=== PATIENT | female | born 1995 | race American Indian/Alaskan Native ===

== ENCOUNTER 2017-12-10 08:02 | Day surgery (SDC) | payer BC ==
[2017-12-10] MEDS ORDERED: Sodium Chloride 0.9% 10 ML Syringe FLUSH PRN (08:23)
[2017-12-10] MEDS ORDERED: HYDROmorphone 2 MG/ML SDV IVPUSH PRN (08:23)
[2017-12-10] MEDS ORDERED: Sodium Chloride 0.9% 2.5 ML Syringe FLUSH PRN (08:23)
[2017-12-10] MEDS ORDERED: Lactated Ringers 1,000 ML IV SCH (08:30)
--- NOTE | 2017-12-10 08:30 | PCM.HP ---
H&P History of Present Illness - General Date of Service: 12/10/17 Admit Problem/Dx: Admission Diagnosis/Problem Admission Diagnosis/Problem Appendicitis Source of Information: Patient History Limitations: Reports: No Limitations - History of Present Illness Initial Comments - Free Text/Narative: Patient is a 22-year-old female who presents with 12 hours of acute abdominal pain. She's not felt well over the past week. She has been feeling nauseated and vomited several times. Last evening she developed generalized sharp abdominal pain that made it difficult for her to sleep. She presented to an outside emergency room this morning. CBC showed a white blood cell count of 18, 000. CT the abdomen pelvis revealed an acutely dilated appendix with no evidence of rupture. She was transferred here for further cares. She denies fevers or chills. Last time she ate was last evening. Right Lower Abdominal Pain Score (Numeric/FACES): 10 - Related Data Allergies/Adverse Reactions: Allergies Allergy/AdvReac Type Severity Reaction Status Date / Time chocolate flavor Allergy Hives Verified 12/10/17 08:10 venom-honey bee AdvReac Lethargy Verified 12/10/17 08:10 [bee venom (honey bee)] barbaque chips Allergy Facial Uncoded 12/10/17 08:10 Swelling Home Medications: Home Meds . 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 Exam - Exam Exam: See Below - Vital Signs Vital Signs: Last Vital Signs Temp 36.2 C 12/10/17 08:05 Pulse 90 12/10/17 08:05 Resp 16 12/10/17 08:05 BP 128/80 12/10/17 08:05 Pulse Ox 99 12/10/17 08:05 Weight: 81.647 kg - Exam General: Alert, Oriented, Moderate Distress HEENT: Conjunctiva Clear, Mucosa Moist & [place], Posterior Pharynx Clear Lungs: Clear to Auscultation, Normal Respiratory Effort Cardiovascular: Regular Rate, Regular Rhythm GI/Abdominal Exam: Soft, No Distention, No Mass, Guarding (RLQ), Tender (RLQ). No: Rigid, Rebound Back Exam: Normal Inspection Extremities: Normal Inspection - Problem List (1) Appendicitis SNOMED Code(s): 40985263 ICD Code: K37 - UNSPECIFIED APPENDICITIS Status: Acute Current Visit: Yes Problem List Initiated/Reviewed/Updated: Yes Orders Last 24hrs: Active Orders 24 hr Category Date Time Status Patient Status [ADT] Routine ADT 12/10/17 08:23 Ordered Oxygen Therapy [RC] PRN Care 12/10/17 08:23 Ordered RT Incentive Spirometry [RC] Q2HWA Care 12/10/17 08:23 Ordered Up ad Chle [RC] ASDIRECTED Care 12/10/17 08:23 Ordered Vital Signs [RC] PER UNIT ROUTINE Care 12/10/17 08:23 Ordered Nothing Per Oral Diet [DIET] Diet 12/10/17 Breakfast Ordered HYDROmorphone [Dilaudid] Med 12/10/17 08:23 Ordered 0.5 mg IVPUSH Q1H PRN Lactated Ringers @ 125 MLS/HR(1000ml) Med 12/10/17 08:30 Ordered Lactated Ringers [Ringers, Lactated] 1,000 ml IV ASDIRECTED Ondansetron [Zofran] Med 12/10/17 08:23 Ordered 4 mg IVPUSH Q6H PRN Sodium Chloride 0.9% [Saline Flush] Med 12/10/17 08:23 Ordered 10 ml FLUSH ASDIRECTED PRN Sodium Chloride 0.9% [Saline Flush] Med 12/10/17 08:23 Ordered 2.5 ml FLUSH ASDIRECTED PRN Peripheral IV Insertion Adult [OM.PC] Urgent Oth 12/10/17 08:23 Ordered Resuscitation Status Routine Resus Stat 12/10/17 08:23 Ordered Assessment/Plan Comment:: The patient and I discussed the pathophysiology of appendicitis. The treatment for this is appendectomy. We discussed the open and laparoscopic approaches. I will attempt this laparoscopically but should I be unable to complete it safely I will convert to open. The patient and I discussed the expected perioperative course and the risks including bleeding infection or damage to surrounding structures. I explained the different treatment plans based on the appendix is ruptured or not. The patient verbalized understanding and wishes to proceed. We will keep the patient nothing by mouth, continue IV fluid resuscitation, and continue IV antibiotics.
[2017-12-10] MEDS ORDERED: HYDROmorphone 1 MG/ML Syringe IVPUSH ONE (08:42)
[2017-12-10] MEDS ORDERED: fentaNYL 100 MCG/2 ML SDV IVPUSH PRN ×2 (09:36→13:07)
--- NOTE | 2017-12-10 09:55 | PCM.PREANE ---
Preanesthetic Assessment - Anesthesia/Transfusion/Family Hx Anesthesia History: No Prior Anesthesia Family History of Anesthesia Reaction: No Transfusion History: No Prior Transfusion(s) - Review of Systems General: No Symptoms Pulmonary: No Symptoms Cardiovascular: No Symptoms Gastrointestinal: No Symptoms Neurological: No Symptoms Other: Reports: None - Physical Assessment NPO Status Date: 12/09/17 NPO Status Time: 23:00 O2 Sat by Pulse Oximetry: 95 Respiratory Rate: 16 Vital Signs: Last Vital Signs Temp 96 F 12/10/17 09:09 Pulse 82 12/10/17 09:09 Resp 16 12/10/17 09:09 BP 119/72 12/10/17 09:09 Pulse Ox 95 12/10/17 09:09 Height: 5 ft 6 in Weight: 81.647 kg ASA Class: 2 Mental Status: Alert & Oriented x3 Airway Class: Mallampati = 2 Dentition: Reports: Normal Dentition Thyro-Mental Finger Breadths: 3 Mouth Opening Finger Breadths: 3 ROM/Head Extension: Full Lungs: Clear to Auscultation, Normal Respiratory Effort Cardiovascular: Regular Rate, Regular Rhythm - Lab Values: Laboratory Last Values Urine HCG, Qual NEGATIVE (NEGATIVE) 12/10/17 09:12 - Allergies Allergies/Adverse Reactions: Allergies Allergy/AdvReac Type Severity Reaction Status Date / Time chocolate flavor Allergy Hives Verified 12/10/17 08:10 venom-honey bee AdvReac Lethargy Verified 12/10/17 08:10 [bee venom (honey bee)] barbaque chips Allergy Facial Uncoded 12/10/17 08:10 Swelling - Acknowledgements Anesthesia Type Planned: MAC Pt an Appropriate Candidate for the Planned Anesthesia: Yes Alternatives and Risks of Anesthesia Discussed w Pt/Guardian: Yes Pt/Guardian Understands and Agrees with Anesthesia Plan: Yes PreAnesthesia Questionnaire - Past Health History Medical/Surgical History: Denies Medical/Surgical History HEENT History: Reports: None Cardiovascular History: Reports: None Respiratory History: Reports: None Gastrointestinal History: Reports: None Genitourinary History: Reports: UTI, Recurrent [employer]ATIONS History: Reports: Musculoskeletal History: Reports: None Neurological History: Reports: None Psychiatric History: Reports: None Endocrine/Metabolic History: Reports: Obesity/BMI 30+ Hematologic History: Reports: None Immunologic History: Reports: None Oncologic (Cancer) History: Reports: None Dermatologic History: Reports: None - Infectious Disease History Infectious Disease History: Reports: MRSA - Past Imaging History Past Imaging History: Reports: None - SUBSTANCE USE Smoking Status *Q: Never Smoker Recreational Drug Use History: No - HOME MEDS Home Medications: Home Meds . [No Known Home Meds] 12/10/17 [History] Etonogestrel [Nexplanon] 1 dose IMPLANT ASDIRECTED 12/10/17 [History] - CURRENT (IN HOUSE) MEDS Current Meds: Current Medications Fentanyl (Sublimaze) 50 mcg IVPUSH Q5M PRN PRN Reason: Pain (severe 7-10) Stop: 12/11/17 09:37 Hydromorphone HCl (Dilaudid) 0.5 mg IVPUSH Q1H PRN PRN Reason: Pain (severe 7-10) Lactated Ringer's (Ringers, Lactated) 1,000 mls @ 125 mls/hr IV ASDIRECTED ULISES Last Admin: 12/10/17 08:25 Dose: 125 mls/hr Piperacillin Sod/Tazobactam (Sod 3.375 gm/ Sodium Chloride) 50 mls @ 100 mls/ hr IV Q8H ULISES Ondansetron HCl (Zofran) 4 mg IVPUSH Q6H PRN PRN Reason: Nausea/Vomiting Sodium Chloride (Saline Flush) 10 ml FLUSH ASDIRECTED PRN PRN Reason: Keep Vein Open Sodium Chloride (Saline Flush) 2.5 ml FLUSH ASDIRECTED PRN PRN Reason: Keep Vein Open Discontinued Medications Hydromorphone HCl (Dilaudid) 1 mg IVPUSH ONETIME ONE Stop: 12/10/17 08:43 Last Admin: 12/10/17 08:02 Dose: 0.5 mg
[2017-12-10 11:07] LABS: CHLORIDE,CL 104 mmol/L (98-107); SODIUM,NA 138 mmol/L (136-145)
[2017-12-10] MEDS ORDERED: fentaNYL 100 MCG/2 ML SDV ONE ×2 (12:13→13:29)
[2017-12-10] MEDS ORDERED: Propofol 200 MG/20 ML SDV ONE ×2 (12:13→12:48)
[2017-12-10] MEDS ORDERED: Lidocaine 2% 5 ML SDV ONE ×2 (12:13→12:48)
[2017-12-10] MEDS ORDERED: fentaNYL 250 MCG/5 ML SDV ONE (12:13)
[2017-12-10] MEDS ORDERED: Midazolam 1 MG/ML 2 ML SDV ONE (12:13)
[2017-12-10] MEDS ORDERED: Bupivacaine 0.5% 10 ML SDV ONE (12:16)
[2017-12-10] MEDS ORDERED: Sugammadex Sodium 200 MG/2 ML VIAL ONE (12:18)
--- NOTE | 2017-12-10 13:42 | PCM.OPNOTE ---
- General Post-Op/Procedure Note Date of Surgery/Procedure: 12/10/17 Operative Procedure(s): Laparoscopic appendectomy Findings: Grossly inflamed and enlarged appendix. No evidence of perforation Pre Op Diagnosis: Appendicitis Post-Op Diagnosis: Appendicitis Anesthesia Technique: General ET Tube Primary Surgeon: Phyllis Liz Fluid Replacement, Intraop: 1,300 Output, Urine Amount: 65 EBL in mLs: 10 Condition: Fair Free Text/Narrative:: Intake & Output 12/09/17 12/10/17 12/10/17 22:59 06:59 14:59 Output Total 300 Balance -300
[2017-12-10] MEDS ORDERED: Piperacillin/Tazobactam 3.375 GM in Sodium Chloride 0.9% 50 ML IV SCH (14:00)
--- NOTE | 2017-12-10 14:27 | PCM.POSTAN ---
POST ANESTHESIA ASSESSMENT - MENTAL STATUS Mental Status: Alert, Oriented - RESPIRATORY Respiratory Status: Respiratory Rate WNL, Airway Patent, O2 Saturation Stable - CARDIOVASCULAR CV Status: Pulse Rate WNL, Blood Pressure Stable - GASTROINTESTINAL GI Status: No Symptoms - PAIN Pain Score: 0 - POST OP HYDRATION Hydration Status: Adequate & Stable
--- NOTE | 2017-12-10 15:03 | OR ---
SURGEON: LUISITO BRAN MD DATE OF PROCEDURE: 12/10/2017 PREOPERATIVE DIAGNOSIS: Appendicitis. POSTOPERATIVE DIAGNOSIS: Appendicitis. PROCEDURE PERFORMED: Laparoscopic appendectomy. ANESTHESIA: General endotracheal anesthesia. FLUIDS: 1300 mL of crystalloid. ESTIMATED BLOOD LOSS: 10 mL. URINE OUTPUT: 165 mL. FINDINGS: Enlarged and inflamed appendix, did not appear ruptured. COMPLICATIONS: None. INDICATIONS: The patient is a 22-year-old female, who developed generalized abdominal pain last night. She presented to the emergency room in an outside facility. White blood cell count was 18,000. CT scan revealed acute appendicitis. She was transferred here for further cares. I visited with the patient in the emergency room. We discussed the pathophysiology of appendicitis. I explained the need for an appendectomy. We discussed the open and laparoscopic approaches. I will attempt this laparoscopically, but should I be unable to perform it safely, I will convert to open. The patient and I discussed the expected perioperative course as well as the risks including bleeding, infection, or damage to surrounding structures. The patient verbalized understanding and wishes to proceed. PROCEDURE IN DETAIL: The patient was brought into the operating room, placed on the OR table in supine position. A time-out was completed verifying the patient's name, age, date of , allergies, and procedure to be performed. General endotracheal anesthesia was induced. The left arm was tucked at the patient's side and a Rey catheter placed. The abdomen was prepped and draped in usual standard fashion. An area 2 fingerbreadths below the left subcostal margin in the midclavicular line was anesthetized with 0.5% Marcaine plain. A 1 cm incision was made in this area using an 11 blade. A 5 mm optical trocar was then used to gain entry into the abdomen in the left upper quadrant. All layers of the abdominal wall were visualized upon entry. The abdomen was insufflated. A 5 mm 30-degree scope was inserted in the abdomen and I inspected the area underneath my initial trocar placement. No damage to surrounding structures was noted. A 5 mm trocar was then placed under direct visualization and just left lateral to the umbilicus. A 12 mm trocar was placed under direct visualization of the left lower quadrant. The patient was placed into Trendelenburg position and airplaned slightly to the left. I turned my attention to the right lower quadrant. A dilated and inflamed appendix was noted. This was grasped with an atraumatic grasper and elevated. I identified the base of the appendix as it inserted upon the cecum. A Harmonic Scalpel was used to take the appendiceal mesentery down in distal to proximal fashion. As I got closer to the base of the appendix, great care was taken to dissect out this area fully. Once the appendiceal mesentery was completely taken down, the appendix was stapled and transected with an endoscopic stapling device using a 45 mm blue load of pawel. The appendix was then placed in an EndoCatch bag and removed through the 12 mm port site. I reinserted the port and inspected my operative field. There was a small amount of oozing at the base of the appendix. Square of Surgicel was placed over this area. The area was then monitored and hemostasis was achieved. There was a small amount of murky fluid in the pelvis. This was suctioned out and irrigated. I then reinspected my operative site and the pawel were intact and the area was still hemostatic. The 12 mm port was removed and the fascia at this site closed with interrupted 0 Vicryl suture placed with a Christopher-Tala device. The 5 mm trocars were removed under direct visualization. The abdomen allowed to desufflate. The 12 mm port site was closed with interrupted 3-0 Vicryl in the subcutaneous fat and a running 4-0 Monocryl stitch. The 5 mm trocar sites were closed with interrupted 4-0 Monocryl. Steri-Strips and sterile dressings were applied. The patient tolerated the procedure well and was taken to PACU in stable condition. MERVIN DAVSI /[id number]
--- NOTE | 2017-12-10 15:51 | PCM48HPAN ---
Post Anesthesia Note - EVALUATION WITHIN 48HRS OF ANESTHETIC Vital Signs in Normal Range: Yes Patient Participated in Evaluation: Yes Respiratory Function Stable: Yes Airway Patent: Yes Cardiovascular Function Stable: Yes Hydration Status Stable: Yes Pain Control Satisfactory: Yes Nausea and Vomiting Control Satisfactory: Yes Mental Status Recovered: Yes Resp Rate: 14
[2017-12-10] MEDS: Ondansetron 4 MG/2 ML SDV IVPUSH PRN ×2 (16:56→23:52)
[2017-12-10] MEDS: Acetaminophen/HYDROcodone 325-10 MG Tab PO PRN (19:24)
[2017-12-10] MEDS ORDERED: Lactated Ringers 1,000 ML IV ONE (21:43)
[2017-12-10] MEDS ORDERED: Piperacillin/Tazobactam 3.375 GM in Sodium Chloride 0.9% 50 ML IV ONE (23:00)
[2017-12-11] MEDS: Acetaminophen/HYDROcodone 325-10 MG Tab PO PRN (04:27)
[2017-12-11 05:15] VITALS: BP 118/71
[2017-12-11] MEDS ORDERED: Piperacillin/Tazobactam 3.375 GM in Sodium Chloride 0.9% 50 ML IV SCH (08:00)
--- NOTE | 2017-12-11 08:39 | PCM.SURGPN ---
- General Info Date of Service: 12/11/17 Date of Surgery/Procedure: 12/10/17 POD#: 1 Post-Op Diagnosis: Acute appendicitis Functional Status: Reports: Pain Controlled, Tolerating Diet, Ambulating, Urinating - Review of Systems General: Reports: No Symptoms Pulmonary: Reports: No Symptoms Cardiovascular: Reports: No Symptoms Gastrointestinal: Reports: No Symptoms Genitourinary: Reports: No Symptoms - Patient Data Vitals - Most Recent: Last Vital Signs Temp 36.3 C 12/11/17 04:00 Pulse 79 12/11/17 04:00 Resp 16 12/11/17 04:00 BP 118/71 12/11/17 04:00 Pulse Ox 97 12/11/17 04:00 Weight - Most Recent: 95.6 kg I&O - Last 24 Hours: Intake & Output 12/10/17 12/11/17 12/11/17 22:59 06:59 14:59 Intake Total 320 500 Output Total 550 Balance 320 -50 Lab Results Last 24 Hrs: Laboratory Results - last 24 hr 12/10/17 12/10/17 Range/Units 09:12 10:35 Sodium 138 (136-145) mmol/L Potassium 3.9 (3.5-5.1) mmol/L Chloride 104 (98-107) mmol/L Carbon Dioxide 26.3 (21.0-32.0) mmol/L BUN 11 (7.0-18.0) mg/dL Creatinine 0.7 (0.6-1.0) mg/dL Est Cr Clr Drug Dosing 119.01 mL/min Estimated GFR (MDRD) > 60.0 ml/min Glucose 96 (74-106) mg/dL Calcium 8.3 L (8.5-10.1) mg/dL Urine HCG, Qual NEGATIVE (NEGATIVE) Med Orders - Current: Current Medications Hydrocodone Bitart/Acetaminophen (Hon[place] 325-10 Mg) 2 tab PO Q4H PRN PRN Reason: Abdominal Pain Last Admin: 12/11/17 04:27 Dose: 1 tab Fentanyl (Sublimaze) 50 mcg IVPUSH Q5M PRN PRN Reason: Pain (severe 7-10) Stop: 12/11/17 09:37 Fentanyl (Sublimaze) 50 mcg IVPUSH Q5M PRN PRN Reason: Pain (severe 7-10) Stop: 12/11/17 13:07 Hydromorphone HCl (Dilaudid) 0.5 mg IVPUSH Q1H PRN PRN Reason: Pain (severe 7-10) Last Admin: 12/10/17 10:42 Dose: 0.5 mg Piperacillin Sod/Tazobactam (Sod 3.375 gm/ Sodium Chloride) 50 mls @ 100 mls/ hr IV Q8H [facility] Ondansetron HCl (Zofran) 4 mg IVPUSH Q6H PRN PRN Reason: Nausea/Vomiting Last Admin: 12/10/17 23:52 Dose: 4 mg Sodium Chloride (Saline Flush) 10 ml FLUSH ASDIRECTED PRN PRN Reason: Keep Vein Open Sodium Chloride (Saline Flush) 2.5 ml FLUSH ASDIRECTED PRN PRN Reason: Keep Vein Open Discontinued Medications Bupivacaine HCl (Sensorcaine-Mpf 0.5%) Confirm Administered Dose 10 ml .ROUTE .STK-MED ONE Stop: 12/10/17 12:17 Fentanyl (Sublimaze) Confirm Administered Dose 100 mcg .ROUTE .STK-MED ONE Stop: 12/10/17 12:14 Fentanyl (Sublimaze) Confirm Administered Dose 250 mcg .ROUTE .STK-MED ONE Stop: 12/10/17 12:14 Fentanyl (Sublimaze) Confirm Administered Dose 100 mcg .ROUTE .STK-MED ONE Stop: 12/10/17 13:30 Hydromorphone HCl (Dilaudid) 1 mg IVPUSH ONETIME ONE Stop: 12/10/17 08:43 Last Admin: 12/10/17 08:02 Dose: 0.5 mg Lactated Ringer's (Ringers, Lactated) 1,000 mls @ 125 mls/hr IV ASDIRECTED [facility] Last Admin: 12/10/17 08:25 Dose: 125 mls/hr Piperacillin Sod/Tazobactam (Sod 3.375 gm/ Sodium Chloride) 50 mls @ 100 mls/ hr IV Q8H [facility] Lactated Ringer's (Ringers, Lactated) 1,000 mls @ 999 mls/hr IV .BOLUS ONE Stop: 12/10/17 22:43 Last Admin: 12/10/17 21:55 Dose: 999 mls/hr Piperacillin Sod/Tazobactam (Sod 3.375 gm/ Sodium Chloride) 50 mls @ 100 mls/ hr IV ONETIME ONE Stop: 12/10/17 23:29 Last Admin: 12/10/17 23:55 Dose: 100 mls/hr Lidocaine (Xylocaine-Mpf 2%) Confirm Administered Dose 10 ml .ROUTE .STK-MED ONE Stop: 12/10/17 12:14 Lidocaine (Xylocaine-Mpf 2%) Confirm Administered Dose 5 ml .ROUTE .STK-MED ONE Stop: 12/10/17 12:49 Midazolam HCl (Versed 1 Mg/Ml) Confirm Administered Dose 2 mg .ROUTE .STK-MED ONE Stop: 12/10/17 12:14 Propofol (Diprivan 20 Ml) Confirm Administered Dose 200 mg .ROUTE .STK-MED ONE Stop: 12/10/17 12:14 Propofol (Diprivan 20 Ml) Confirm Administered Dose 200 mg .ROUTE .STK-MED ONE Stop: 12/10/17 12:49 Sugammadex Sodium ([place]) Confirm Administered Dose 200 mg .ROUTE .STK-MED ONE Stop: 12/10/17 12:19 - Exam Wound/Incisions: Healing Well, Dressing Dry and Intact General: Alert, Oriented, Cooperative Lungs: Normal Respiratory Effort Cardiovascular: Regular Rate GI/Abdominal Exam: Soft, Non-Tender, No Distention, No Mass - Problem List & Annotations (1) Appendicitis SNOMED Code(s): 59056074 Code(s): K37 - UNSPECIFIED APPENDICITIS Status: Acute Current Visit: Yes - Problem List Review Problem List Initiated/Reviewed/Updated: Yes - My Orders Last 24 Hours: Active Orders 24 hr Category Date Time Status Patient Status [ADT] Routine ADT 12/10/17 08:23 Active Oxygen Therapy [RC] ASDIRECTED Care 12/10/17 22:43 Active RT Incentive Spirometry [RC] Q2HWA Care 12/10/17 08:23 Active Vital Signs [RC] Q4H Care 12/10/17 08:23 Active Regular Diet [DIET] Diet 12/10/17 Dinner Active HCG QUALITATIVE,URINE [URCHEM] Stat Lab 12/10/17 09:12 Ordered Acetaminophen/HYDROcodone [Honobia 325-10 MG] Med 12/10/17 13:42 Active 2 tab PO Q4H PRN HYDROmorphone [Dilaudid] Med 12/10/17 08:23 Active 0.5 mg IVPUSH Q1H PRN Ondansetron [Zofran] Med 12/10/17 08:23 Active 4 mg IVPUSH Q6H PRN Piperacillin/Tazobactam [Piperacil-Tazobact] 3.375 gm Med 12/11/17 08:00 Active Sodium Chloride 0.9% [Normal Saline] 50 ml IV Q8H Sodium Chloride 0.9% [Saline Flush] Med 12/10/17 08:23 Active 10 ml FLUSH ASDIRECTED PRN Sodium Chloride 0.9% [Saline Flush] Med 12/10/17 08:23 Active 2.5 ml FLUSH ASDIRECTED PRN fentaNYL [Sublimaze] Med 12/10/17 09:36 Active 50 mcg IVPUSH Q5M PRN fentaNYL [Sublimaze] Med 12/10/17 13:07 Active 50 mcg IVPUSH Q5M PRN Medication Administration Instruction [OM.PC] Routine Oth 12/10/17 09:36 Ordered Peripheral IV Insertion Adult [OM.PC] Urgent Oth 12/10/17 08:23 Ordered Resuscitation Status Routine Resus Stat 12/10/17 08:23 Ordered Medication Orders Hydrocodone Bitart/Acetaminophen ([place] 325-10 Mg) 2 tab PO Q4H PRN PRN Reason: Abdominal Pain Last Admin: 12/11/17 04:27 Dose: 1 tab Admin: 12/10/17 19:24 Dose: 1 tab Fentanyl (Sublimaze) 50 mcg IVPUSH Q5M PRN PRN Reason: Pain (severe 7-10) Stop: 12/11/17 09:37 Fentanyl (Sublimaze) 50 mcg IVPUSH Q5M PRN PRN Reason: Pain (severe 7-10) Stop: 12/11/17 13:07 Hydromorphone HCl (Dilaudid) 0.5 mg IVPUSH Q1H PRN PRN Reason: Pain (severe 7-10) Last Admin: 12/10/17 10:42 Dose: 0.5 mg Piperacillin Sod/Tazobactam (Sod 3.375 gm/ Sodium Chloride) 50 mls @ 100 mls/ hr IV Q8H ULISES Ondansetron HCl (Zofran) 4 mg IVPUSH Q6H PRN PRN Reason: Nausea/Vomiting Last Admin: 12/10/17 23:52 Dose: 4 mg Admin: 12/10/17 16:56 Dose: 4 mg Sodium Chloride (Saline Flush) 10 ml FLUSH ASDIRECTED PRN PRN Reason: Keep Vein Open Sodium Chloride (Saline Flush) 2.5 ml FLUSH ASDIRECTED PRN PRN Reason: Keep Vein Open - Assessment Assessment (Free Text/Narrative):: Patient appears well this morning. Vitals stable overnight. Tolerating a regular diet. Ambulating without difficulty. Pain manageable with oral medications. Patient will discharge home this morning.
== END 2017-12-11 09:16 | disposition home or self-care (01) ==
LOC: MW.ED 08:02 → MW.SDS 09:26 → MW.ICU 09:49 → MW.MS 23:30 → MW.SDS 12-11 09:16
PROVIDERS: ATTEND Surgery
DX: K35.80 Unspecified acute appendicitis (principal); E66.9 Obesity, unspecified; Z68.29 Body mass index [BMI] 29.0-29.9, adult; Z91.030 Bee allergy status; Z91.018 Allergy to other foods
CPT/HCPCS: 36415; 44970; 80048; 81025; 96361; 96374; 99284; A9270; J1170; J2250; J2405; J2543; J2704; J3010; J3490; J7050; J7120; 88304

== ENCOUNTER 2020-03-31 00:40 | Emergency (ER) | payer BC, OTHER ==
[2020-03-31] MEDS ORDERED: Ketorolac 30 MG/ML SDV IVPUSH ONE (01:02)
--- NOTE | 2020-03-31 01:05 | EDM.PDOC ---
ED HPI GENERAL MEDICAL PROBLEM - General Chief Complaint: Abdominal Pain Stated Complaint: AMB Time Seen by Provider: 03/31/20 00:49 History Limitations: Reports: No Limitations - History of Present Illness INITIAL COMMENTS - FREE TEXT/NARRATIVE: Is a 24-year-old female who was transferred from outside hospital for right lower quadrant pain. Patient states she is had this pain on and off since May. Patient states the pain does is not there every day. Nothing makes the pain worse but states that she does sit still the pain can get better. Patient denies any vomiting diarrhea but decreased p.o. intake. Patient had labs and CAT scan performed outside hospital with overall negative. Patient also reports that her appendix was also removed. Treatments TALENT ADVISOR: Reports: IV/IO Other Treatments TALENT ADVISOR: dilaudid, zofran and morphine in [facility] ED Right Lower Abdomen Pain Score (Numeric/FACES): 9 - Related Data Allergies Allergy/AdvReac Type Severity Reaction Status Date / Time chocolate flavor Allergy Severe Hives Verified 03/31/20 01:02 venom-honey bee AdvReac Severe Lethargy Verified 03/31/20 01:02 [bee venom (honey bee)] barbaque chips Allergy Severe Facial Uncoded 03/31/20 01:02 Swelling Home Meds: Home Meds . 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: Other CAP MACHINE OPERATOR History: STD Musculoskeletal History: Reports: None Neurological History: Reports: None Psychiatric History: Reports: None Endocrine/Metabolic History: Reports: Obesity/BMI 30+ Hematologic History: Reports: None Immunologic History: Reports: None Oncologic (Cancer) History: Reports: None Dermatologic History: Reports: None - Infectious Disease History Infectious Disease History: Reports: MRSA - Past Surgical History GI Surgical History: Reports: Appendectomy - Past Imaging History Past Imaging History: Reports: None Social & Family History - Family History Family Medical History: No Pertinent Family History - Caffeine Use Caffeine Use: Reports: Soda, Tea ED ROS GENERAL - Review of Systems Review Of Systems: See Below Constitutional: Reports: No Symptoms HEENT: Reports: No Symptoms Respiratory: Reports: No Symptoms Cardiovascular: Reports: No Symptoms Endocrine: Reports: No Symptoms GI/Abdominal: Reports: Abdominal Pain : Reports: No Symptoms Musculoskeletal: Reports: No Symptoms Skin: Reports: No Symptoms Neurological: Reports: No Symptoms Psychiatric: Reports: No Symptoms Hematologic/Lymphatic: Reports: No Symptoms Immunologic: Reports: No Symptoms ED EXAM, GENERAL - Physical Exam Exam: See Below Exam Limited By: No Limitations General Appearance: Alert, No Apparent Distress Respiratory/Chest: No Respiratory Distress, Lungs Clear Cardiovascular: Normal Peripheral Pulses, Regular Rate, Rhythm GI/Abdominal: Normal Bowel Sounds, Soft, No Organomegaly, Tender Back Exam: Normal Inspection Neurological: Alert, Oriented, Normal Cognition, Normal Gait Course - Vital Signs Last Recorded V/S: Last Vital Signs Temp 96.2 F L 03/31/20 00:48 Pulse 68 03/31/20 01:55 Resp 14 03/31/20 01:55 BP 119/70 03/31/20 01:55 Pulse Ox 96 03/31/20 01:55 - Orders/Labs/Meds Meds: Medications Discontinued Medications Generic Name Dose Route Start Last Admin Trade Name Vincent PRN Reason Stop Dose Admin Ketorolac Tromethamine 30 mg 03/31/20 01:02 03/31/20 01:53 Toradol IVPUSH 03/31/20 01:03 30 mg ONETIME ONE Administration - Re-Assessments/Exams Free Text/Narrative Re-Assessment/Exam: 03/31/20 02:22 Patient ultrasound is negative. Patient pain also controlled patient will be discharged home with ultrasound was also follow-up with her PMD as outpatient. Departure - Departure Time of Disposition: 02:22 Disposition: Home, Self-Care 01 Condition: Good Clinical Impression: Abdominal pain - Discharge Information *PRESCRIPTION DRUG MONITORING PROGRAM REVIEWED*: Not Applicable *COPY OF PRESCRIPTION DRUG MONITORING REPORT IN PATIENT ANA: Not Applicable Instructions: Abdominal Pain, Adult, [id number] Referrals: PCP,None [Primary Care Provider] - Forms: ED Department Discharge Additional Instructions: The following information is given to patients seen in the emergency department who are being discharged to home. This information is to outline your options for follow-up care. We provide all patients seen in our emergency department with a follow-up referral. The need for follow-up, as well as the timing and circumstances, are variable depending upon the specifics of your emergency department visit. If you don't have a primary care physician on staff, we will provide you with a referral. We always advise you to contact your personal physician following an emergency department visit to inform them of the circumstance of the visit and for follow-up with them and/or the need for any referrals to a consulting specialist. The emergency department will also refer you to a specialist when appropriate. This referral assures that you have the opportunity for follow-up care with a specialist. All of these measure are taken in an effort to provide you with optimal care, which includes your follow-up. Under all circumstances we always encourage you to contact your private physician who remains a resource for coordinating your care. When calling for follow-up care, please make the office aware that this follow-up is from your recent emergency room visit. If for any reason you are refused follow-up, please contact the [facility] Emergency Department at and asked to speak to the emergency department charge nurse. Please follow up with your primary care physician. If you do not have a primary care physician, see below: [facility] - General Surgery Professional [address], [address] [place] [address] Follow-up with general surgery as outpatient. You have any increased pain or unable to tolerate food or liquid please return to the ED. Sepsis Event Note (ED) - Evaluation Sepsis Screening Result: No Definite Risk - Focused Exam Vital Signs: Vital Signs Temp Pulse Resp BP Pulse Ox 03/31/20 01:55 68 14 119/70 96 03/31/20 00:48 96.2 F L 84 18 125/79 94 L - Assessment/Plan Plan: 24-year-old female who was transferred from outside hospital for evaluation of her right lower quadrant pain. Patient had CT scan performed there is also had her appendix removed. Patient sent here for ultrasound to rule out torsion. Will perform ultrasound and reassess.
--- NOTE | 2020-03-31 01:45 | US ---
INDICATION: Right lower quadrant pain. COMPARISON: None available. FINDINGS: Transvaginal and transabdominal ultrasound examination of the female pelvis was performed. Initial examination is performed with transabdominal technique and transvaginal technique is used for better visualization of the pelvic structures. The uterus is anteverted with no evidence of mass. It measures 6.9 x 4.1 x 4.5 cm. The endometrial lining is normal in thickness at 5 mm. Normal appearing follicular cysts are seen in both ovaries. The ovaries are normal in size, the right measuring 3.1 x 2.4 x 2.9 cm and the left measuring 2.8 x 2.4 x 1.7 cm. There is normal color and pulse doppler flow in the right ovary. The left ovary is seen only on transabdominal examination. Flow cannot be seen in the left ovary on transabdominal examination which has limited sensitivity for flow. There is a small amount of free fluid in the cul-de-sac. The patient does have rebound tenderness in the right lower quadrant on exam. A formal ultrasound examination of the right lower quadrant is not performed, but there is no sign of any free fluid on images of the right lower quadrant. IMPRESSION: Normal appearance of the right ovary with normal color and pulse Doppler flow. Normal appearance of the uterus. Rebound tenderness in the right lower quadrant with no evidence of fluid collection in the right lower quadrant. Unable to verify flow in the left ovary, seen only on transabdominal examination which has limited sensitivity for flow. Dictated by Herman Yu MD @ Mar 31 2020 1:39AM Signed by Dr. Herman Yu @ Mar 31 2020 1:43AM
[2020-03-31 02:51] VITALS: BP 114/61; PULSE 61
== END 2020-03-31 02:57 | disposition home or self-care (01) ==
LOC: MW.ED 00:40
DX: R10.31 Right lower quadrant pain (principal); E66.9 Obesity, unspecified; Z91.018 Allergy to other foods; Z91.030 Bee allergy status
CPT/HCPCS: 76830; 96374; 99284; J1885; 99283